=== PATIENT | female | born 1935 | race Caucasian/White ===

== ENCOUNTER 2020-05-20 12:28 | Inpatient (IN) | payer OTHER ==
[~2020-05-20] VITALS: Ht 157.5 cm; Wt 55.8 kg
[~2020-05-20 12:28] MED LIST: ACET325 PO; ALBU90OI INH; ASPI81EC PO; ATEN25 PO; CEFD300 PO; CONEST.625 PO; EZET10 PO; FISH1000 PO; FOLI1 PO; ISOMON30 PO; LEVO750 PO; MULVITMIND PO; Synthroid100 MCG PO
[2020-05-20 14:32] LABS: BASOPHILS ABSOLUTE AUTO 0.04 K/mm3 (0.00-0.23); BASOPHILS PERCENT AUTO 1 % (0-2); EOSINOPHILS ABSOLUTE AUTO 0.02 K/mm3 (0.00-0.68); EOSINOPHILS PERCENT AUTO 0 % (0-6); Hematocrit 33.6 % (33.0-51.0); Hemoglobin 11.1 g/dL (11.5-16.0); IMMATURE GRAN ABSOLUTE AUTO 0.04 K/mm3 (0.00-0.10); IMMATURE GRAN PERCENT AUTO 1 % (0-1); LYMPHOCYTES PERCENT AUTO 15 % (21-46); MONOCYTES PERCENT AUTO 5 % (4-13); Mean Corpuscular HGB 30.6 pg (26.0-34.0); Mean Corpuscular Volume 93 fL (80-100); Mean Platelet Volume 9.5 fL (9.1-12.4); NEUTROPHILS ABSOLUTE AUTO 6.35 K/mm3 (1.96-9.15); NEUTROPHILS PERCENT AUTO 79 % (41-73); Platelet Count 246 K/mm3 (150-400); RDW Coefficient Variation 12.7 % (11.7-14.2); RDW Standard Deviation 43.2 fL (35.1-46.3); Red Blood Cell Count 3.63 M/mm3 (3.80-5.20); White Blood Cell Count 8.05 K/mm3 (4.00-11.30)
[2020-05-20 14:57] LABS: Alanine Aminotransfer (ALT/SGP 24 U/L (12-78); Albumin, Blood 3.6 g/dL (3.4-5.0); Albumin/Globulin Ratio 1.1 (0.8-1.8); Alk Phos 82 U/L (50-136); Anion Gap 7 mmol/L (6-16); Aspartate Aminotrans (AST/SGOT 25 U/L (12-37); Bilirubin, Total 0.3 mg/dL (0.1-1.0); Blood Urea Nitrogen 24 mg/dL (8-24); Bun/Creatinine Ratio 26.2 (12.0-20.0); CO2, Blood 27 mmol/L (21-32); Calcium, Blood 8.9 mg/dL (8.5-10.1); Chloride, Blood 101 mmol/L (98-108); Creatinine, Blood 0.92 mg/dL (0.40-1.00); Globulin, Blood 3.2 g/dL (2.2-4.0); Glomerular Filtration Rate >60 (60-); Glucose, Blood 155 mg/dL (70-99); Potassium, Blood 4.4 mmol/L (3.5-5.5); Sodium, Blood 135 mmol/L (136-145); Total Protein, Blood 6.8 g/dL (6.4-8.2); Troponin I <0.015 ng/mL (0.000-0.040)
[2020-05-20 15:06] LABS: Source, Urine Clean Catch
[2020-05-20 15:12] LABS: Appearance, Urine Clear (Clear); Bilirubin, Urine Neg (Neg); Blood, Urine Neg (Neg); Color, Urine Yellow (P-Yellow); Glucose Qualitative, Urine Neg (Neg); Ketones, Urine 2+ (Neg); Leukocyte Esterase, Urine 2+ (Neg); Nitrite, Urine Neg (Neg); Protein, Urine Neg (Neg); Urobilinogen, Urine NORM (Normal)
[2020-05-20] MEDS ORDERED: Prinivil10 MG PO (15:21)
[2020-05-20] MEDS ORDERED: LEVSOD100 PO (15:21)
[2020-05-20] MEDS ORDERED: ROSU5 PO (15:22)
[2020-05-20 15:23] LABS: Red Blood Cells, Urine 0-2 /hpf (0-2); White Blood Cells, Urine 0-2 /hpf (0-5)
[2020-05-20] MEDS ORDERED: FERROUS SULFAT325 M3 PO (15:23)
[2020-05-20 15:24] LABS: Bacteria Few /hpf; Squamous Epithelial Cells Few /hpf (Few)
[2020-05-20] MEDS ORDERED: VITAMIN D325 MC3 PO (15:56)
[2020-05-20] MEDS ORDERED: ASPIR 8181 M1 PO (15:56)
[2020-05-20] MEDS ORDERED: CYAN1000I IM (15:56)
[2020-05-20 16:05] LABS: Influenza A, PCR Negative (NEGATIVE); Influenza B, PCR Negative (NEGATIVE); Resp Syncytial Virus, PCR Negative (NEGATIVE); SARS-Cov-2 (COVID-19) PCR, MMC Negative (NEGATIVE)
[2020-05-20 16:15] LABS: International Normalized Ratio 0.96; Prothrombin Time Results 10.3 Sec (9.7-11.5)
--- NOTE | 2020-05-20 18:54 | NUR ---
ORIENTED TO ROOM LAYOUT AND CALL SYSTEM, LS CLEAR, HRR, C/O UPSET STOMACH FROM "NOT EATING" DAUGHTER AT BEDSIDE, PT IS A&OX3, REPORT TO NOC RN.
[2020-05-21 05:04] LABS: BASOPHILS ABSOLUTE AUTO 0.02 K/mm3 (0.00-0.23); BASOPHILS PERCENT AUTO 0 % (0-2); EOSINOPHILS PERCENT AUTO 0 % (0-6); Hematocrit 33.8 % (33.0-51.0); IMMATURE GRAN ABSOLUTE AUTO 0.09 K/mm3 (0.00-0.10); IMMATURE GRAN PERCENT AUTO 1 % (0-1); LYMPHOCYTES ABSOLUTE AUTO 0.96 K/mm3 (0.84-5.20); LYMPHOCYTES PERCENT AUTO 7 % (21-46); MONOCYTES ABSOLUTE AUTO 0.83 K/mm3 (0.16-1.47); MONOCYTES PERCENT AUTO 6 % (4-13); Mean Corpuscular HGB 29.3 pg (26.0-34.0); Mean Corpuscular HGB Conc 32.5 g/dL (31.5-36.5); Mean Corpuscular Volume 90 fL (80-100); Mean Platelet Volume 9.5 fL (9.1-12.4); NEUTROPHILS ABSOLUTE AUTO 11.15 K/mm3 (1.96-9.15); NEUTROPHILS PERCENT AUTO 85 % (41-73); Platelet Count 247 K/mm3 (150-400); RDW Coefficient Variation 12.2 % (11.7-14.2); RDW Standard Deviation 40.3 fL (35.1-46.3); Red Blood Cell Count 3.75 M/mm3 (3.80-5.20); White Blood Cell Count 13.05 K/mm3 (4.00-11.30)
--- NOTE | 2020-05-21 05:16 | NUR ---
SHIFT SUMMARY L HIP FX. [id number]. PT RESTING IN BED DURING SHIFT CALL FREQUENTLY FOR REPOSITIONING AND TO LIFT LEG UP. PT CALLING FOR PAIN MEDICATION DURING SHIFT AND SLEEPING DURING THE NIGHT. NPO SINCE MIDNIGHT FOR PLANNED PROCEDURE. CRAFT PATENT AND DRAINING, IV FLUIDS INFUSING.
[2020-05-21 05:43] LABS: Anion Gap 6 mmol/L (6-16); Blood Urea Nitrogen 25 mg/dL (8-24); Bun/Creatinine Ratio 28.2 (12.0-20.0); CO2, Blood 27 mmol/L (21-32); Chloride, Blood 99 mmol/L (98-108); Creatinine, Blood 0.89 mg/dL (0.40-1.00); Glomerular Filtration Rate >60 (60-); Glucose, Blood 140 mg/dL (70-99); Sodium, Blood 132 mmol/L (136-145)
--- NOTE | 2020-05-21 06:02 | NUR ---
PT IS CONFUSED THIS AM. ASKED FOR THE BED TO BE REMOVED FROM UNDERNEATH HER, AND HAS BEEN ASKING TO STAND OUT OF BED. NEEDED TO BE REMINDED THAT SHE HAS A BROKEN LEG AND IS POSSIBLY HAVING SURGERY TODAY. SHE REORIENTS AFTER BEING TOLD WHERE SHE AND THE PLAN.
--- NOTE | 2020-05-21 07:45 | NUR ---
PATIENT CONFUSED, ASKING TO GET UP OOB, PUT HER SHOES ON, ETC. ASKING ME TO SEE WHO IS AT THE DOOR [DOORMAKER NEXT ROOM.] REORIENTED PATIENT TO PLACE, SITUATION, ETC.
--- NOTE | 2020-05-21 10:30 | NUR ---
PATIENT TO LINK SURGERY AT THIS TIME.
--- NOTE | 2020-05-21 10:30 | NUR ---
DAUGHTER, WHO HAS MEDICAL POA, CALLED AND STATED THAT IF PATIENT UNDERSTOOD SITUATION, SHE COULD GIVE CONSENT FOR SURGERY. DAUGHTER WILL BE IN TO SEE THIS AFTERNOON.
--- NOTE | 2020-05-21 11:03 | NUR ---
PT FROM SURGICAL FLOOR TO DAY SURGERY. PT IS PLEASENT AND ALERT. STS THE PROCEDURE SHE IS HAVING TODAY. PAIN IN LT HIP VSS ON RA. PT STS SHE LAST ATE YESTERDAY AFTERNOON. History, Chart, Medications and Allergies reviewed before start of procedure. Lungs clear T/O to Auscultation. Patient confirms NPO status and agrees with scheduled surgery.
--- NOTE | 2020-05-21 14:45 | NUR ---
PATIENT RETURNED TO ROOM 214 AT THIS TIME. AWAKE. REMAINS SLIGHTLY CONFUSED RE: PLACE, SITUATION. REORIENTED. DAUGHTER AT BEDSIDE. VSS. BIOX 92% ON RA. LS CLEAR T/O. HRR. AQUACEL DRESSING TO L HIP C/D/I. PPP. WIGGLES TOES. DENIES N/T. DENIES NAUSEA, PAIN. FC PATIENT, DRAINING CLEAR YELLOW URINE, STAT LOCK IN PLACE. CONT TO MONITOR.
--- NOTE | 2020-05-21 16:38 | NUR ---
SHIFT SUMMARY NO ACUTE CHANGES THIS SHIFT. PATIENT REQUESTS UP TO BSC AT TIMES, ASSISTED THEN BACK TO BED. PATIENT FEARFUL AND ANXIOUS WHEN UP. RESTS QUIETLY WHEN MEDICATED FOR PAIN/ANXIETY. DAUGHTER IN TO SEE THIS AFTERNOON. NO ACUTE CHANGES.
--- NOTE | 2020-05-21 16:46 | NUR ---
SHIFT SUMMARY PATIENT CONT DENY PAIN. TOLERATING PO. VSS. DRESSING TO L HIP C/D/I. FC PATIENT AND DRAINING. DAUGHTER STATES PATIENT STILL CONFUSED; PATIENT HAS NOT SLEPT SINCE ARRIVAL TO FLOOR AFTER SURGERY. BED ALARM ON AND CALL LIGHT IN PLACE.
[2020-05-22 04:32] LABS: BASOPHILS ABSOLUTE AUTO 0.03 K/mm3 (0.00-0.23); BASOPHILS PERCENT AUTO 0 % (0-2); EOSINOPHILS ABSOLUTE AUTO 0.01 K/mm3 (0.00-0.68); EOSINOPHILS PERCENT AUTO 0 % (0-6); Hematocrit 30.7 % (33.0-51.0); Hemoglobin 10.1 g/dL (11.5-16.0); IMMATURE GRAN ABSOLUTE AUTO 0.06 K/mm3 (0.00-0.10); IMMATURE GRAN PERCENT AUTO 0 % (0-1); LYMPHOCYTES ABSOLUTE AUTO 1.08 K/mm3 (0.84-5.20); LYMPHOCYTES PERCENT AUTO 8 % (21-46); MONOCYTES ABSOLUTE AUTO 0.83 K/mm3 (0.16-1.47); MONOCYTES PERCENT AUTO 6 % (4-13); Mean Corpuscular HGB 29.9 pg (26.0-34.0); Mean Corpuscular HGB Conc 32.9 g/dL (31.5-36.5); Mean Corpuscular Volume 91 fL (80-100); Mean Platelet Volume 9.3 fL (9.1-12.4); NEUTROPHILS ABSOLUTE AUTO 11.96 K/mm3 (1.96-9.15); NEUTROPHILS PERCENT AUTO 86 % (41-73); Platelet Count 219 K/mm3 (150-400); RDW Coefficient Variation 12.4 % (11.7-14.2); RDW Standard Deviation 41.2 fL (35.1-46.3); Red Blood Cell Count 3.38 M/mm3 (3.80-5.20); White Blood Cell Count 13.97 K/mm3 (4.00-11.30)
[2020-05-22 04:48] LABS: Albumin, Blood 3.1 g/dL (3.4-5.0); Anion Gap 6 mmol/L (6-16); Blood Urea Nitrogen 21 mg/dL (8-24); Bun/Creatinine Ratio 21.7 (12.0-20.0); CO2, Blood 28 mmol/L (21-32); Calcium, Blood 8.6 mg/dL (8.5-10.1); Chloride, Blood 97 mmol/L (98-108); Creatinine, Blood 0.97 mg/dL (0.40-1.00); Glomerular Filtration Rate 59 (60-); Glucose, Blood 117 mg/dL (70-99); Phosphorus, Blood 2.8 mg/dL (2.5-4.9); Potassium, Blood 4.4 mmol/L (3.5-5.5); Sodium, Blood 131 mmol/L (136-145)
--- NOTE | 2020-05-22 07:24 | NUR ---
SHIFT SUMMARY POD1 L MANJULA HIP FX REPAIR, ALERT BUT CONFUSED, ORIENTED TO SELF AND SITUATION, VSS, CRAFT IN PLACE TO BE REMOVED BY POD2 PER ORDER, TOLERATING PO, DENIED PAIN T/O SHIFT, UP TO CHAIR FOR BREAKFAST, BED ALARM ACTIVE WHILE IN BED, TAB ALARM APPLIED WHILE IN CHAIR, DISCUSSED W/ PT ALARM WAS FOR HER SAFETY. CALL LIGHT IN REACH, WILL CONTINUE TO MONITOR AND REPORT TO ONCOMING DAY RN.
--- NOTE | 2020-05-22 09:38 | NUR ---
05/22/20 0938 Ashli Greco VERIFICATIONS: EDIT CHART.
--- NOTE | 2020-05-22 18:47 | NUR ---
SHIFT SUMMARY PATIENT UP TO CHAIR X 2 THIS SHIFT. MOVES SLOWLY, BEARS WEIGHT WELL. PAIN CONTROLLED PER PATIENT WITH ULTRAM 25 MG. FC DRAINING WELL, STAT LOCK IN PLACE. TENTATIVE PLAN FOR SNF TRANSFER TOMORRROW. NO ACUTE CHANGES.
[2020-05-23 04:32] LABS: BASOPHILS ABSOLUTE AUTO 0.02 K/mm3 (0.00-0.23); BASOPHILS PERCENT AUTO 0 % (0-2); EOSINOPHILS ABSOLUTE AUTO 0.02 K/mm3 (0.00-0.68); EOSINOPHILS PERCENT AUTO 0 % (0-6); Hematocrit 26.3 % (33.0-51.0); Hemoglobin 8.7 g/dL (11.5-16.0); IMMATURE GRAN ABSOLUTE AUTO 0.04 K/mm3 (0.00-0.10); IMMATURE GRAN PERCENT AUTO 1 % (0-1); LYMPHOCYTES ABSOLUTE AUTO 1.11 K/mm3 (0.84-5.20); LYMPHOCYTES PERCENT AUTO 14 % (21-46); MONOCYTES ABSOLUTE AUTO 0.68 K/mm3 (0.16-1.47); MONOCYTES PERCENT AUTO 9 % (4-13); Mean Corpuscular HGB Conc 33.1 g/dL (31.5-36.5); Mean Corpuscular Volume 91 fL (80-100); Mean Platelet Volume 10.2 fL (9.1-12.4); NEUTROPHILS ABSOLUTE AUTO 6.03 K/mm3 (1.96-9.15); NEUTROPHILS PERCENT AUTO 76 % (41-73); Platelet Count 203 K/mm3 (150-400); RDW Coefficient Variation 12.6 % (11.7-14.2); RDW Standard Deviation 42.2 fL (35.1-46.3)
--- NOTE | 2020-05-23 04:36 | NUR ---
SHIFT SUMMARY PT IS ALERT BUT CONFUSED, REORIENTING EASILY. BED ALARM ON. DRESSING TO L HIP REPLACED WITH AQUACEL THIS SHIFT. TAKING PILLS WHOLE WITH WATER. PT HAS DENIED NEED FOR PAIN MEDICATION OVERNIGHT, MANAGING PAIN WITH REPOSITIONING AND REST. TELE IN PLACE OVERNIGHT; HAS BEEN SINUS RHYTHM PER REGISTERED CLINICAL DIETITIAN. PT RESTING AT THIS TIME WITH CALL LIGHT IN REACH. WILL D/C CRAFT THIS AM.
[2020-05-23 04:49] LABS: Albumin, Blood 2.5 g/dL (3.4-5.0); Anion Gap 5 mmol/L (6-16); Blood Urea Nitrogen 22 mg/dL (8-24); CO2, Blood 28 mmol/L (21-32); Calcium, Blood 8.3 mg/dL (8.5-10.1); Chloride, Blood 101 mmol/L (98-108); Glomerular Filtration Rate 56 (60-); Glucose, Blood 92 mg/dL (70-99); Phosphorus, Blood 2.5 mg/dL (2.5-4.9); Potassium, Blood 3.9 mmol/L (3.5-5.5); Sodium, Blood 134 mmol/L (136-145)
--- NOTE | 2020-05-23 05:51 | NUR ---
LUANA AKBAR'Brandon AT 0545. PT UP TO CHAIR WITH 2X ASSIST AND FWW.
[2020-05-23 13:03] LABS: Hematocrit 27.1 % (33.0-51.0); Hemoglobin 9.1 g/dL (11.5-16.0)
--- NOTE | 2020-05-23 16:59 | NUR ---
SHIFT SUMMARY POD3 L HIP MANJULA ARTHRO, WB FABRICIO ON LLE. PT IS A 2 PERSON ASSIST, SLOW PROMPTS W/ ADLS. SHE IS SLOW AND FEARFUL WHEN TRYING TO GET UP, TEND TO LEAN POSTERIORLY. CRAFT WAS TAKEN OUT THIS MORNING. PT HAS ADEQUATE UA OUTPUT. 1 SMALL BM. PT TOLERATING REG DIET, DENIES N/V. PASSING FLATUS WELL. PAIN MANAGE W/ ULTRAM AND TYLENOL. SHE WAS UP IN CHAIR ALL AFTERNOON AND USE BSC. SHE WAS NOT CLEARED W/ PTHERAPY TODAY. REEVAL NATALIE AND ANTICIPATE TO DC HOME W/ FAMILY. DR. CAMILO NOTIFIED.
--- NOTE | 2020-05-23 22:48 | NUR ---
PATIENT IS UNSTABLE WHEN AMBULATING, REQUIRED 2 PERSON ASSIST WITH GAIT BELT AND FWW. SHE LEANS BACK AND NEEDS TO BE ADJUSTED GENTLY WITH THE GAIT BELT TO LEAN FORWARD. SHE IS USING THE BSC TO VOID. PATIENT WILL NEED MORE TRAINING WITH PT AND OT. CALL LIGHT IN REACH.
--- NOTE | 2020-05-24 05:58 | NUR ---
PATIENT HAS SLEPT BETWEEN TRIPS TO [facility]. SHE REQUIRES 2 PERSON FULL ASSIST TO THE [facility]. THIS MORNING WE WALKED PATIENT WITH FWW AND GAIT BELT APPROXIMATELY 30 FEET. SHE NEEDS TO BE REMINDED TO WALK FLAT FOOTED, SHE STARTS OFF WALKING ON THE BALLS OF HER FEET. SHE WALKS FAST, AND WHEN SHE STOPS, SHE STARTS TO LEAN BACK. SHE IS HOPING THAT SHE WILL BE DISCHARGED TODAY. SURGICAL SITE IS CLEAN AND DRY. CALL LIGHT IN REACH.
[2020-05-24] MEDS ORDERED: ACET325 PO (10:51)
[2020-05-24] MEDS ORDERED: Isosorbide Mono30 MG PO (10:52)
[2020-05-24] MEDS ORDERED: TRAM50 PO (10:53)
--- NOTE | 2020-05-24 12:35 | NUR ---
DISCHARGE DELAY PER PT IS READY TO DISCHARGE HOME W/HOME HEALTH. DISCUSSED WITH CM YESTERDAY, PTS FAMILY WAS UNDER THE IMPRESSION FOLLOWING CONVERSATION W/CM ON Monday05/22/20 THAT ALL ORDERS FOR SUPPLIES (WALKER, BSC, AND WC) WERE SENT AND TO BE DELIVERED ON MONDAY AND THAT [facility] HAD [facility] TO [facility] . ON 05/23/20 THIS RN SPOKE WITH CM HUMBERTO QUINONES REGARDING HH AND WAS TOLD THAT ONCE DC ORDERS WERE RECIEVED THEY WERE TO BE FAXED TO [facility] . THIS INFORMATION WAS PASSED ALONG TO PRIMARY RN. PT WAS NOT CLEARED FOR DISCHARGE BY THERAPY ON 05/23/20 DUE CONCERNS WITH BALANCE AND TRANSFERS-THIS RN UNAWARE IF ORDERS WERE FAXED BY PRIMARY RN 05/23/20. 05/24/20 PTS DAUGHTER ARRIVED AND WHEN DISCUSSING DISCHARGE STATED THAT MEDICAL EQUIPMENT STILL HAD NOT BEEN DELIVERED, CONTACTED [facility] IN WHO LOOKED AND FOUND NO DOCUMENTATION THAT ANY ORDERS HAD BEEN SENT FOR ANY EQUIPMENT (SEE CM NOTE). NO AVAILABLE DELIVERY TODAY. DR CAMILO NOTIFIED.
--- NOTE | 2020-05-24 15:54 | NUR ---
SHIFT SUMMARY NO ACUTE CHANGES TODAY. ULTRAM FOR PAIN MANAGEMENT. UP IN CHAIR FOR MOST OF THE SHIFT. 1-2 MODERATE SBA USING FWW + GB TO BSC. CONTINUING TO NEED COACHING + CUES WITH MOBILITY. AQUACEL DRESSING TO HIP REMAINS CDI. HARD RX FOR ULTRAM GIVEN TO PT DAUGHTER TO FILL. DELAY OF DISCHARGE HOME R/T EQUIPMENT NOT BEING ORDERED/DELIVERED. SEE NURSING NOTE. CALL LIGHT WITHIN REACH.
--- NOTE | 2020-05-25 04:41 | NUR ---
SHIFT SUMMARY PT HAS BEEN A/O BUT FORGETFUL AT TIMES. USING BED ALARM. HAS BEEN UP TO BSC FREQUENTLY TO VOID; USING 2X ASSIST WITH FWW AND GAIT BELT. REFUSING SCD'S. PAIN MANAGED WITH ULTRAM PER ORDERS. TOLERATING PO INTAKE W/O NAUSEA. UP TO CHAIR AROUND 0400. PT RESTING AT THIS TIME WITH CALL LIGHT IN REACH.
== END 2020-05-25 11:30 | disposition home health service (06) | DRG 522 ==
LOC: ER 12:28 → SURS 15:23
PROVIDERS: Emergency Medicine; Orthopaedic Surgery; Physician Assistant; ADMIT Family Medicine
PROC: 0SRS0J9 Replacement of Left Hip Joint, Femoral Surface with Synthetic Substitute, Cemented, Open Approach (ICD-10-PCS; principal; 2020-05-21 11:30)
DX: S72.002A Fracture of unspecified part of neck of left femur, initial encounter for closed fracture (principal); E87.1 Hypo-osmolality and hyponatremia; W19.XXXA Unspecified fall, initial encounter; I10 Essential (primary) hypertension; E78.5 Hyperlipidemia, unspecified; E89.0 Postprocedural hypothyroidism; D64.9 Anemia, unspecified; Z86.718 Personal history of other venous thrombosis and embolism; Z86.73 Personal history of transient ischemic attack (TIA), and cerebral infarction without residual deficits; Z87.891 Personal history of nicotine dependence; Z79.82 Long term (current) use of aspirin
CPT/HCPCS: 0241U; 36415; 70450; 71045; 73502; 73552; 80048; 80053; 80069; 81001; 83880; 84484; 85014; 85018; 85025; 85610; 85730; 87077; 87086; 87186; 88305; 88311; 93005; 93010; 96374; 96375; 96376; 97110; 97116; 97162; 97165; 97530; 99285-25; A9270; A9270-GY; C1713; C1776; J0171; J0690; J0735; J1100; J1170; J1650; J2370; J2405; J2704; J2795; J3010; J7030; J7120

== ENCOUNTER 2021-10-10 21:52 | Emergency (ER) | payer OTHER ==
[~2021-10-10] VITALS: Ht 152.4 cm; Wt 72.6 kg
[~2021-10-10 21:52] MED LIST changes: +ASPIR 8181 M1 PO; +CYAN1000I IM; +FERROUS SULFAT325 M3 PO; +Isosorbide Mono30 MG PO; +LEVSOD100 PO; +Prinivil10 MG PO; +ROSU5 PO; +TRAM50 PO; +VITAMIN D325 MC3 PO
[2021-10-10 22:51] LABS: Source, Urine Clean Catch
[2021-10-10 22:53] LABS: Bilirubin, Urine Neg (Neg); Blood, Urine Neg (Neg); Glucose Qualitative, Urine Neg (Neg); Ketones, Urine Neg (Neg); Leukocyte Esterase, Urine 1+ (Neg); Nitrite, Urine Neg (Neg); Protein, Urine Neg (Neg); Specific Gravity, Urine 1.015 (1.003-1.022); Urobilinogen, Urine NORM (Normal); pH, Urine 6.5 (5.0-8.0)
[2021-10-10 22:54] LABS: Appearance, Urine Clear (Clear); Color, Urine Yellow (P-Yellow)
[2021-10-10 23:01] LABS: Bacteria Not Seen /hpf; Red Blood Cells, Urine Not Seen /hpf (0-2); Squamous Epithelial Cells Rare /hpf (Few); White Blood Cells, Urine 0-2 /hpf (0-5)
[2021-10-11] MEDS ORDERED: FEROSUL325 M1 PO (17:45)
[2021-10-11] MEDS ORDERED: LEVSOD112 PO (17:46)
[2021-10-11] MEDS ORDERED: FLUO10 PO (17:47)
[2021-10-11] MEDS ORDERED: VITAMIN D325 MC3 PO (17:50)
== END 2021-10-11 01:25 | disposition home or self-care (01) ==
LOC: ER 21:52
PROVIDERS: Physician Assistant
DX: S09.90XA Unspecified injury of head, initial encounter (principal); S01.01XA Laceration without foreign body of scalp, initial encounter; W01.0XXA Fall on same level from slipping, tripping and stumbling without subsequent striking against object, initial encounter; Y92.009 Unspecified place in unspecified non-institutional (private) residence as the place of occurrence of the external cause; Z88.1 Allergy status to other antibiotic agents; Z88.5 Allergy status to narcotic agent; Z88.8 Allergy status to other drugs, medicaments and biological substances; Z79.899 Other long term (current) drug therapy; Z79.82 Long term (current) use of aspirin; Z87.891 Personal history of nicotine dependence
CPT/HCPCS: 70450; 72125; 81001; A9270

== ENCOUNTER 2021-10-11 12:31 | Inpatient (IN) | payer OTHER ==
[~2021-10-11] VITALS: Ht 157.5 cm; Wt 52.6 kg
[2021-10-11 13:41] LABS: BASOPHILS ABSOLUTE AUTO 0.05 K/mm3 (0.00-0.23); BASOPHILS PERCENT AUTO 1 % (0-2); EOSINOPHILS ABSOLUTE AUTO 0.14 K/mm3 (0.00-0.68); EOSINOPHILS PERCENT AUTO 2 % (0-6); Hematocrit 33.8 % (33.0-51.0); Hemoglobin 10.9 g/dL (11.5-16.0); IMMATURE GRAN ABSOLUTE AUTO 0.11 K/mm3 (0.00-0.10); IMMATURE GRAN PERCENT AUTO 1 % (0-1); LYMPHOCYTES ABSOLUTE AUTO 0.92 K/mm3 (0.84-5.20); LYMPHOCYTES PERCENT AUTO 11 % (21-46); MONOCYTES ABSOLUTE AUTO 0.55 K/mm3 (0.16-1.47); MONOCYTES PERCENT AUTO 7 % (4-13); Mean Corpuscular HGB 28.6 pg (26.0-34.0); Mean Corpuscular HGB Conc 32.2 g/dL (31.5-36.5); Mean Corpuscular Volume 89 fL (80-100); NEUTROPHILS ABSOLUTE AUTO 6.67 K/mm3 (1.96-9.15); NEUTROPHILS PERCENT AUTO 79 % (41-73); Platelet Count 279 K/mm3 (150-400); RDW Coefficient Variation 13.1 % (11.7-14.2); RDW Standard Deviation 42.8 fL (35.1-46.3); Red Blood Cell Count 3.81 M/mm3 (3.80-5.20); White Blood Cell Count 8.44 K/mm3 (4.00-11.30)
[2021-10-11 14:02] LABS: Alanine Aminotransfer (ALT/SGP 21 U/L (12-78); Albumin, Blood 3.4 g/dL (3.4-5.0); Alk Phos 97 U/L (50-136); Anion Gap 5 mmol/L (6-16); Aspartate Aminotrans (AST/SGOT 29 U/L (12-37); Bilirubin, Total 0.4 mg/dL (0.1-1.0); Blood Urea Nitrogen 25 mg/dL (8-24); CO2, Blood 28 mmol/L (21-32); Calcium, Blood 8.5 mg/dL (8.5-10.1); Chloride, Blood 102 mmol/L (98-108); Creatinine, Blood 0.89 mg/dL (0.40-1.00); Globulin, Blood 3.3 g/dL (2.2-4.0); Glomerular Filtration Rate >60 (60-); Glucose, Blood 94 mg/dL (70-99); Potassium, Blood 4.2 mmol/L (3.5-5.5); Sodium, Blood 135 mmol/L (136-145); Total Protein, Blood 6.7 g/dL (6.4-8.2)
[2021-10-11] MEDS ORDERED: FEROSUL325 M1 PO (17:45)
[2021-10-11] MEDS ORDERED: LEVSOD112 PO (17:46)
[2021-10-11] MEDS ORDERED: FLUO10 PO (17:47)
[2021-10-11] MEDS ORDERED: VITAMIN D325 MC3 PO (17:50)
--- NOTE | 2021-10-11 21:30 | NUR ---
PT ARRIVED TO ROOM FROM ER, ACCOMPANIED BY DAUGHTERS. PT A/O X2-3, IS FORGETFUL AT TIMES PER REP. VSS. MILD SWELLING IN RIGHT HIP, PT WEAKLY WIGGLES TOES. LEFT LEG CROSSED OVER RIGHT, PT REP SHE IS UNABLE TO STRAIGHTEN OUT LEG. LACERATION TO LEFT TOP OF HEAD W/DRIED BLOOD NOTED; LAC IS FROM FALL PREV NIGHT PER DAUGHTERS. PT REP SHE HAS HAD MULTIPLE FALLS RECENTLY R/T UNSTEADY GAIT, REP HX CVA W/LEFT SIDE AFFECT. PT AND DAUGHTERS ORIENTED TO ROOM/CALL LIGHT, BED ALARM ON FOR SAFETY.
--- NOTE | 2021-10-11 22:31 | NUR ---
PT ARRIVED TO THE FLOOR FROM ED AT 2107. VITALS TAKEN, GOWN CHANGED, ORIENTED TO THE ROOM. FAMILY IN ROOM ANSWERED QUESTIONS WITH THE PATIENT FOR ADMISSION SCREENING. BED ALARM ON FOR SAFETY, AOX2-3, LAC TO TOP OF HEAD WITH DRIED BLOOD, REPORTED BY FAMILY TO BE FROM PREVIOUS NIGHTS FALL. BRUISE TO THE RIGHT SHOULDER ALSO NOTED BY FAMILY TO BE FROM THE PREVIOUS NIGHTS FALL. PT DENIES NEED FOR PAIN MEDICINE AT THIS TIME. ORDERS REVIEWED, CALL LIGHT IN REACH, WILL MONITOR FOR CHANGES.
--- NOTE | 2021-10-12 05:26 | NUR ---
SHIFT SUMMARY, PATIENT ADMITTED TO FLOOR WITH RIGHT HIP FX FROM GROUND LEVEL FALL AT HOME. FAMILY ACCOMPANIES PATIENT STATES SHE HAS HAD INCREASED FALLS AT HOME, LIVES ALONE. DAUGHTER IS POA. PATIENT IS FULL CODE.REPOSITIONED FOR COMFORT. PT STATES PAIN IS MINIMAL AND DENIES NEED FOR PAIN MEDICATION. ASSESSED SKIN AND HEAD FOR WOUNDS, ABRASIONS. R SHOUILDER BRUISE, AND LACERATION NOTED ON THE BACK OF HEAD. ADDMISSION SCREENING DONE. FAMILY NOTED CONTACT INFO AND LEFT FOR THE NIGHT AFTER PATIENT SETTLED INTO ROOM. PATIENT REMAINS NPO AFTER MIDNIGHT FOR POSSIBLE SURGERY TODAY. DR VALDEZ HAS BEEN NOTIFIED OF PT. PT REPOSITIONED THROUGH OUT THE SHIFT. BLADDER SCAN DONE NOTED ONLY 53 MLS AT THAT TIME, HAS NOT VOIDED YET WILL REASSESS AND BLADDER SCAN PER ORDERS. VSS, CALL LIGHT IN REACH. WILL MONITOR FOR CHANGES.
--- NOTE | 2021-10-12 05:57 | NUR ---
ADMIT AESSESSMENT DONE AT BEDSIDE W/INTERNET MARKETING MANAGER. THIS RN AGREES W/INTERNET MARKETING MANAGER ONEYDA GRANDE'S DOCUMENTED ASSESSMENT.
--- NOTE | 2021-10-12 06:29 | NUR ---
PT VSS SINCE ARRIVING TO FLOOR. PT APPEARED TO SLEEP FOR MOST OF NIGHT, REPOSITIONED FABRICIO. PT NPO POST MIDNIGHT, IVF CONT PER ORDERS. NO VOID YET, PLAN TO BLADDER SCAN AND TX PER ORDERS. PT FORGETFUL AT TIMES, BED ALARM ON FOR SAFETY.
--- NOTE | 2021-10-12 06:33 | NUR ---
UPDATED NOTE, BLADDER SCAN PER ORDERS: 239MLS, FLUIDS RUNNING WILL REPORT TO DAYSHIFT.
[2021-10-12 10:32] LABS: Source, Urine Foley catheter
[2021-10-12 10:36] LABS: Appearance, Urine Clear (Clear); Bilirubin, Urine Neg (Neg); Blood, Urine 1+ (Neg); Color, Urine Yellow (P-Yellow); Glucose Qualitative, Urine Neg (Neg); Ketones, Urine Neg (Neg); Leukocyte Esterase, Urine Neg (Neg); Nitrite, Urine Neg (Neg); Protein, Urine 2+ (Neg); Specific Gravity, Urine 1.025 (1.003-1.022); Urobilinogen, Urine NORM (Normal)
[2021-10-12 10:55] LABS: Red Blood Cells, Urine 0-2 /hpf (0-2); White Blood Cells, Urine 0-2 /hpf (0-5)
[2021-10-12 10:56] LABS: Bacteria Mod /hpf; Mucus Mod (0-Heavy); Squamous Epithelial Cells Rare /hpf (Few)
--- NOTE | 2021-10-12 11:17 | NUR ---
DISCUSSION WITH FAMILY PT'S FAMILY AT THE BEDSIDE WITH SOME QUESTIONS AND CONCERNS. PT WAS ASSISTED ONTO THE BEDPAN BUT WAS UNABLE TO VOID AND PAINFUL WHEN GETTING ON THE BEDPAN. PT AND FAMILY REQUESTED A CATHETER, CRAFT CATH WAS PLACED PER ORDER FROM DR. WALTON. PT AND FAMILY ASKED ABOUT SURGERY TIME, UNABLE TO PROVIDE ANSWER PT IS ON THE SURGICAL SCHEDULE BUT NO TIME HAS BEEN SET. THEY EXPRESSED SOME CONCERNS ABOUT PT'S VISIT TO THE ER, PATIENT ADVOCATE NUMBER PROVIDED. PT STATED SHE WAS CONCERNED ABOUT DEVELOPING PNEUMONIA SINCE SHE IS UNABLE TO GET OOB. PT WAS PROVIDED WITH AN INCENTIVE SPIROMETER AND EDUCATED TO USE. FAMILY ENCOURAGED TO ASSIST PATIENT SINCE SHE HAS LIMITED UPPER EXTREMITY MOBILITY.
--- NOTE | 2021-10-12 14:55 | NUR ---
PT TAKEN TO DAY SURGERY AT THIS TIME.
--- NOTE | 2021-10-12 20:22 | NUR ---
PT BACK FROM PACU. PT VERY SLEEPY BUT DOES OPEN EYES AND RESPOND WITH ONE WORD ANSWERS WHEN WOKEN UP. O2 SATS 89-91% ON RA, PLACED ON 2L O2. PT UP TO 97% WITHIN 15 MINUTES, TITRATED DOWN TO 1L AT THIS TIME. OTHER VSS. AQUACEL DRESSING TO R HIP WITH 2 SMALL DOTS OF DRAINAGE NOTED, OTHERWISE C/D/I. WILL CONTINUE TO MONITOR.
--- NOTE | 2021-10-13 04:51 | NUR ---
HOUSEKEEPING ASSOCIATE SUMMARY PT BACK FROM SURGERY SHORTLY AFTER START OF SHIFT. PT HAD R HIP REPAIR. AQUACEL DRESSING C/D/I ASIDE FROM 2 VERY SMALL SPOTS OF DRAINAGE. PT VERY SLEEPY WHEN SHE ARRIVED FROM SURGERY BUT OPENED HER EYES AND SAID YES/NO. SLEPT WELL UNTIL AROUND 0200. ONCE AWAKE PT MOSTLY ORIENTED BUT CONFUSED AT TIMES AND NEEDING REORIENTED. PT PULLED ONE OF HER IV'S ON ACCIDENT AND DIDN'T REALIZE WHAT SHE HAD DONE. BED ALARM ON FOR SAFETY. CRAFT CATH DRAINING SHADE URINE. PT ABLE TO DRINK WATER WHILE AWAKE, NEEDS INSTRUCTION TO TAKE SMALL SIPS. VSS, WILL CONTINUE TO MONITOR.
[2021-10-13 05:32] LABS: Hematocrit 24.2 % (33.0-51.0); Hemoglobin 7.7 g/dL (11.5-16.0); Mean Corpuscular HGB 28.8 pg (26.0-34.0); Mean Corpuscular HGB Conc 31.8 g/dL (31.5-36.5); Mean Corpuscular Volume 91 fL (80-100); Mean Platelet Volume 9.4 fL (9.1-12.4); Platelet Count 202 K/mm3 (150-400); RDW Coefficient Variation 13.2 % (11.7-14.2); RDW Standard Deviation 43.8 fL (35.1-46.3); Red Blood Cell Count 2.67 M/mm3 (3.80-5.20); White Blood Cell Count 9.26 K/mm3 (4.00-11.30)
[2021-10-13 06:02] LABS: Albumin, Blood 2.4 g/dL (3.4-5.0); Albumin/Globulin Ratio 0.9 (0.8-1.8); Bilirubin, Total 0.3 mg/dL (0.1-1.0); Calcium, Blood 7.9 mg/dL (8.5-10.1); Creatinine, Blood 1.04 mg/dL (0.40-1.00); Globulin, Blood 2.8 g/dL (2.2-4.0); Percent Saturation 7.3 % (15.0-50.0); Potassium, Blood 4.1 mmol/L (3.5-5.5); Thyroid Stimulating Hormone 0.456 uIU/mL (0.360-4.800); Total Protein, Blood 5.2 g/dL (6.4-8.2)
--- NOTE | 2021-10-13 17:57 | NUR ---
SHIFT SUMMARY PT POD #1 FOR R HIP REPAIR. AQUACEL DRESSING WITH SOME SHADOWING, OTHERWISE CDI. TREATED FOR PAIN PER EMR X3 THIS SHIFT. PT HAS PARKINSON'S AND CAN BE RIGID, SHE IS A 2 PERSON ASSIST WITH A FWW/GB TO THE CHAIR. TOE TOUCH WB. CRAFT IN PLACE AND DRAINING TO GRAVITY. VSS. WILL REPORT TO DENIA MEIER.
[2021-10-14 04:47] LABS: Hemoglobin 6.6 g/dL (11.5-16.0); Mean Corpuscular HGB 29.1 pg (26.0-34.0); Mean Corpuscular Volume 88 fL (80-100); Mean Platelet Volume 9.8 fL (9.1-12.4); Platelet Count 184 K/mm3 (150-400); RDW Coefficient Variation 13.5 % (11.7-14.2); RDW Standard Deviation 43.5 fL (35.1-46.3); Red Blood Cell Count 2.27 M/mm3 (3.80-5.20); White Blood Cell Count 8.78 K/mm3 (4.00-11.30)
[2021-10-14 05:00] LABS: Albumin, Blood 2.4 g/dL (3.4-5.0); Albumin/Globulin Ratio 0.8 (0.8-1.8); Bilirubin, Total 0.3 mg/dL (0.1-1.0); Bun/Creatinine Ratio 23.6 (12.0-20.0); Calcium, Blood 8.3 mg/dL (8.5-10.1); Creatinine, Blood 1.65 mg/dL (0.40-1.00); Potassium, Blood 4.2 mmol/L (3.5-5.5); Total Protein, Blood 5.4 g/dL (6.4-8.2)
--- NOTE | 2021-10-14 05:10 | NUR ---
MERCHANDISE PLANNING MANAGER SUMMARY PATIENT A&O X3 AND COOPERATIVE. VSS. PATIENT FREQUENTLY PULLED AT DRESSINGS AND OTHER ITEMS ATTACHED TO HER SKIN. AQUACELL COVERING R HIP INCISION WAS REPLACED AFTER BEING PARTIALLY REMOVED BY PATIENT. PATIENT WOULD ALSO OCASIONALLY FORGET WHERE SHE WAS AT. HOWEVER, SHE BECAME COOPERATIVE AFTER BEING REORIENTED AND REMINDED SHE IS IN THE HOSPITAL. PATIENT WAS MEDICATED WITH PERCOCET FOR 5/10 PAIN, PER EMAR. SHE SLEPT MUCH OF THE SHIFT. NO OTHER ACUTE CHANGES THIS SHIFT.
--- NOTE | 2021-10-14 11:07 | NUR ---
Pt. is awake and in bed. Pts. daiughter and grandaughter are present, Pt. welcomes my visit. Pt. is unsettled about the delay in finding her blood type. Pt. verbalizes that she has specific blood issues that require specific blood. Listen empathetically and facilitate a life review. Pt. displays evidence of spiritual peace and trust in God, as well as a very good sense of humor. prayed woth Pt. Pt. and daughter verbalize gratitude for the spiritual care visit.
--- NOTE | 2021-10-14 18:38 | NUR ---
SHIFT SUMMARY PT POD #2 FOR R HIP GAMMA NAILING. PT H/H LOW AND BEING GIVEN A UNIT OF BLOOD. SHE IS TOLERATING BLOOD ADMINISTRATION WELL. PT HAS PARKINSONS AND IS VERY STIFF WHEN AMBULATING. PT STILL HAVING LOW URINE OUTPUT, PHYSICIAN AWARE. PT SEEMS MORE CONFUSED TODAY THAN YESTERDAY AND SEARCHES FOR HER WORDS MUCH MORE. FAMILY MEMBERS AT BEDSIDE TODAY TO HELP WITH CARE. VSS.
--- NOTE | 2021-10-15 05:59 | NUR ---
COST REPORT CLERK SUMMARY PT A&O X3. VSS. PATIENT RECIEVED ONE LITER OF BLOOD THIS SHIFT. SHE COMPLAINED OF 6/10 PAIN AND WAS MEDICATED WITH TYLENOL AND PERCOCET, PER EMAR. PATIENT'S URINARY OUTPUT INCREASED FROM LAST NIGHT. 1,200 ML WERE EMPTIED FROM HER CRAFT. AQUACELL COVERING R HIP INCISION IS INTACT WITH LIGHT SS DRAINAGE. +1 EDEMA PRESENT AROUND INCISION SITE. PATIENT STILL HAS NOT HAD BM. NO OTHER ACUTE CHANGES THIS SHIFT.
[2021-10-15 06:50] LABS: Hemoglobin 8.1 g/dL (11.5-16.0); Mean Corpuscular HGB 29.7 pg (26.0-34.0); Mean Corpuscular HGB Conc 33.8 g/dL (31.5-36.5); Mean Corpuscular Volume 88 fL (80-100); Mean Platelet Volume 9.7 fL (9.1-12.4); NRBC ABSOLUTE 0.03 K/mm3 (0.00-0.02); NRBC Auto 0.4 /100 WBC (0.0-0.2); Platelet Count 187 K/mm3 (150-400); RDW Coefficient Variation 13.7 % (11.7-14.2); RDW Standard Deviation 43.6 fL (35.1-46.3); Red Blood Cell Count 2.73 M/mm3 (3.80-5.20); White Blood Cell Count 7.85 K/mm3 (4.00-11.30)
[2021-10-15 07:15] LABS: Albumin, Blood 2.3 g/dL (3.4-5.0); Albumin/Globulin Ratio 0.8 (0.8-1.8); Bilirubin, Total 0.6 mg/dL (0.1-1.0); Calcium, Blood 8.3 mg/dL (8.5-10.1); Potassium, Blood 4.1 mmol/L (3.5-5.5); Total Protein, Blood 5.3 g/dL (6.4-8.2)
[2021-10-15 12:52] LABS: SARS-Cov-2 (COVID-19) PCR, MMC NEGATIVE (NEGATIVE)
--- NOTE | 2021-10-15 14:08 | NUR ---
DISCHARGE NOTE: CALLED [facility] AND GAVE REPORT TO RAPHAEL MEIER. PATIENT AND FAMILY ARE AWARE OF TRANSPORT BEING AT 1415. RIGHT HIP HAS AQUACEL THAT IS C/D/I. DENIES NUMBNESS AND TINGLING. SHE IS ABLE TO MOVE FINGERS AND TOES. PATIENT HAS PERSONAL ITEMS IN THE ROOM GATHERED. IV IS TAKEN OUT AND WNL. PATIENT IS TOLERATING PO INTAKE, VOIDING, AND HAS HAD BMS. PAIN IS MANAGED WITH PO TYLENOL AND PERCOCET. AWAITING FOR TRANSPORT TO ARRIVE TO TAKE THE PATIENT TO [facility].
--- NOTE | 2021-10-15 14:31 | NUR ---
TRANSPORT JUST PICKED UP PATIENT TO TAKE TO [facility]. HARD PERSCRIPTIONS ARE IN THE FOLDER WITH THE TRANSPORT PERSON.
== END 2021-10-15 14:30 | DRG 481 ==
LOC: ER 12:31 → ERHOLD 15:33 → SURS 15:33
PROVIDERS: Internal Medicine; Orthopaedic Surgery; Physician Assistant; ADMIT Internal Medicine
PROC: 30233N1 Transfusion of Nonautologous Red Blood Cells into Peripheral Vein, Percutaneous Approach (ICD-10-PCS; 2021-10-12)
PROC: 0QS606Z Reposition Right Upper Femur with Intramedullary Internal Fixation Device, Open Approach (ICD-10-PCS; principal; 2021-10-12 14:00)
DX: S72.141A Displaced intertrochanteric fracture of right femur, initial encounter for closed fracture (principal); N39.0 Urinary tract infection, site not specified; E87.1 Hypo-osmolality and hyponatremia; N17.9 Acute kidney failure, unspecified; G93.40 Encephalopathy, unspecified; I10 Essential (primary) hypertension; E03.9 Hypothyroidism, unspecified; G20 Parkinson's disease; S01.01XA Laceration without foreign body of scalp, initial encounter; Z20.822 Contact with and (suspected) exposure to COVID-19; R29.6 Repeated falls; B96.5 Pseudomonas (aeruginosa) (mallei) (pseudomallei) as the cause of diseases classified elsewhere; F02.80 Dementia in other diseases classified elsewhere, unspecified severity, without behavioral disturbance, psychotic disturbance, mood disturbance, and anxiety; D53.9 Nutritional anemia, unspecified; E78.5 Hyperlipidemia, unspecified; B96.1 Klebsiella pneumoniae [K. pneumoniae] as the cause of diseases classified elsewhere; Z96.642 Presence of left artificial hip joint; Z91.81 History of falling; Z86.73 Personal history of transient ischemic attack (TIA), and cerebral infarction without residual deficits; Z90.89 Acquired absence of other organs; Z88.1 Allergy status to other antibiotic agents; Z88.5 Allergy status to narcotic agent; Z88.8 Allergy status to other drugs, medicaments and biological substances; Z79.82 Long term (current) use of aspirin; Z79.890 Hormone replacement therapy; Z79.899 Other long term (current) drug therapy; W01.198A Fall on same level from slipping, tripping and stumbling with subsequent striking against other object, initial encounter
CPT/HCPCS: 36415; 36430; 70450; 72100; 72125; 72170; 73030; 73502; 73552; 73590; 73630; 80053; 81001; 82728; 83540; 83550; 83735; 84443; 84484; 85025; 85027; 86850; 86900; 86901; 86902; 86922; 87070; 87077; 87086; 87186; 87205; 93005; 93010; 96374; 96375; 96376; 97110; 97112; 97162; 97166; 97530; 97535; 99284-25; 99285-25; A9270; C1713; C1769; J0690; J0696; J0713; J1100; J1650; J2270; J2370; J2405; J2704; J3010; J3420; J7030; J7040; J7120; P9016; U0004

== ENCOUNTER 2023-08-03 14:54 | Emergency (ER) | payer OTHER ==
[~2023-08-03] VITALS: Ht 157.5 cm; Wt 56.2 kg
[~2023-08-03 14:54] MED LIST changes: +ALUMINUM H320 MG/5 M PO; +Acerola C500 MG PO; +BISA5EC PO; +CEFP200 PO; +FEROSUL325 M1 PO; +FLUO10 PO; +HYDROCHLOROTH12.5 MG PO; +LEVSOD112 PO; +LISI5 PO; +ONDA4ODT MM
[2023-08-03 18:25] VITALS: BP 151/77
== END 2023-08-03 18:30 | disposition home or self-care (01) ==
LOC: ER 14:54
DX: S01.01XA Laceration without foreign body of scalp, initial encounter (principal); W18.30XA Fall on same level, unspecified, initial encounter; Z88.1 Allergy status to other antibiotic agents; Z88.0 Allergy status to penicillin; Z88.5 Allergy status to narcotic agent; Z79.899 Other long term (current) drug therapy; Z79.82 Long term (current) use of aspirin; I10 Essential (primary) hypertension; E03.9 Hypothyroidism, unspecified; F03.90 Unspecified dementia, unspecified severity, without behavioral disturbance, psychotic disturbance, mood disturbance, and anxiety; Z87.891 Personal history of nicotine dependence
CPT/HCPCS: 12001; 99283-25

== ENCOUNTER → 2023-10-02 | Outpatient (CLI) | payer OTHER | END | disposition home or self-care (01) | LOC: LAB 15:03 → LAB SHORT 15:03 | DX: E03.9 Hypothyroidism, unspecified (principal) | CPT/HCPCS: 84443 ==

== ENCOUNTER 2023-10-09 10:02 | Emergency (ER) | payer OTHER ==
[~2023-10-09] VITALS: Ht 152.4 cm; Wt 56.7 kg
[2023-10-09] MEDS ORDERED: Morphine Sulfate 4 MG/1 ML Injection IV ONE (11:05)
[2023-10-09 11:08] LABS: BASOPHILS ABSOLUTE AUTO 0.01 K/mm3 (0.00-0.23); BASOPHILS PERCENT AUTO 0 % (0-2); EOSINOPHILS PERCENT AUTO 0 % (0-6); Hematocrit 31.4 % (33.0-51.0); Hemoglobin 10.9 g/dL (11.5-16.0); IMMATURE GRAN ABSOLUTE AUTO 0.05 K/mm3 (0.00-0.10); IMMATURE GRAN PERCENT AUTO 1 % (0-1); LYMPHOCYTES ABSOLUTE AUTO 0.58 K/mm3 (0.84-5.20); LYMPHOCYTES PERCENT AUTO 5 % (21-46); MONOCYTES ABSOLUTE AUTO 0.64 K/mm3 (0.16-1.47); MONOCYTES PERCENT AUTO 6 % (4-13); Mean Corpuscular HGB 32.2 pg (26.0-34.0); Mean Corpuscular HGB Conc 34.7 g/dL (31.5-36.5); Mean Corpuscular Volume 93 fL (80-100); Mean Platelet Volume 9.3 fL (9.1-12.4); NEUTROPHILS ABSOLUTE AUTO 9.78 K/mm3 (1.96-9.15); NEUTROPHILS PERCENT AUTO 88 % (41-73); Platelet Count 307 K/mm3 (150-400); RDW Standard Deviation 47.7 fL (35.1-46.3); Red Blood Cell Count 3.39 M/mm3 (3.80-5.20); White Blood Cell Count 11.06 K/mm3 (4.00-11.30)
[2023-10-09 11:20] LABS: Albumin, Blood 2.7 g/dL (3.4-5.0); Albumin/Globulin Ratio 0.6 (0.8-1.8); Bilirubin, Total 0.6 mg/dL (0.1-1.0); Bun/Creatinine Ratio 33.4 (12.0-20.0); Calcium, Blood 8.6 mg/dL (8.5-10.1); Creatinine, Blood 0.81 mg/dL (0.40-1.00); Globulin, Blood 4.2 g/dL (2.2-4.0); Potassium, Blood 3.8 mmol/L (3.5-5.5); Total Protein, Blood 6.9 g/dL (6.4-8.2)
[2023-10-09] MEDS ORDERED: Glycopyrrolate 0.2 MG/ML 1MLVIAL IV ONE (12:00)
[2023-10-09] MEDS ORDERED: Acetaminophen 500 MG Tab PO ONE (12:00)
[2023-10-09 14:07] VITALS: BP 148/68
== END 2023-10-09 16:12 | disposition home or self-care (01) ==
LOC: ER 10:02
PROVIDERS: Student in an Organized Health Care Education/Training Program
DX: J18.9 Pneumonia, unspecified organism (principal); G20.B1 Parkinson's disease with dyskinesia, without mention of fluctuations; F02.80 Dementia in other diseases classified elsewhere, unspecified severity, without behavioral disturbance, psychotic disturbance, mood disturbance, and anxiety; R09.02 Hypoxemia; I10 Essential (primary) hypertension; E78.5 Hyperlipidemia, unspecified; E03.9 Hypothyroidism, unspecified; Z79.82 Long term (current) use of aspirin; Z51.5 Encounter for palliative care; Z86.73 Personal history of transient ischemic attack (TIA), and cerebral infarction without residual deficits; Z87.891 Personal history of nicotine dependence; Z79.899 Other long term (current) drug therapy; Z88.0 Allergy status to penicillin; Z88.1 Allergy status to other antibiotic agents; Z88.5 Allergy status to narcotic agent; Z88.6 Allergy status to analgesic agent
CPT/HCPCS: 71045; 80053; 85025; 93005; 93010; 96374; 96375; 99285-25; A9270; J2270